=== PATIENT | male | born 1965 | race Caucasian/White ===

== ENCOUNTER 2017-03-08 19:06 | Emergency (ER) | payer MEDICAID ==
[2017-03-08] MEDS ORDERED: Albuterol/Ipratropium Neb 3 ML AERS HHN ONE ×2 (20:08→20:21)
--- NOTE | 2017-03-08 20:12 | ED Physician Chart ---
Chief Complaint/HPI - Patient Information Date Seen:: 03/08/17 Time Seen:: 20:08 Chief Complaint:: cough History of Present Illness:: pt here for cough x 2 days prod of yellow sputum ...and now his chest is very sore from cough. no def fever. pt has hx of copd. he has a inhaler and has been using it lately. no leg pains or edema. missed work lat 2 days...was in bed (although he is easily ambulating in ed and around hospital to find a cup of tea) Allergies:: Allergies Allergy/AdvReac Type Severity Reaction Status Date / Time No Known Allergies Allergy Verified 03/08/17 19:22 Vitals:: Vital Signs - 8 hr 03/08/17 19:23 Temp 99.0 F HR 70 RR 16 BP 117/68 O2 Sat % 94 Historian:: Patient Review of Systems - Review of Systems General/Constitutional: No fever, No chills, No weight loss, No weakness, No diaphoresis, No edema, No loss of appetite Skin: No skin lesions, No rash, No bruising Head: No headache, No light-headedness Eyes: No loss of vision, No pain, No diplopia ENT: No earache, No nasal drainage, No sore throat, No tinnitus Neck: No neck pain, No swelling, No thyromegaly, No stiffness, No mass noted Cardio Vascular: No chest pain, No palpitations, No PND, No orthopnea, No edema Pulmonary: No SOB, Cough, Sputum, Wheezing GI: No nausea, No vomiting, No diarrhea, No pain, No melena, No hematochezia, No constipation, No hematemesis G/U: No dysuria, No frequency, No hematuria Musculoskeletal: No bone or joint pain, No back pain, No muscle pain Endocrine: No polyuria, No polydipsia Psychiatric: No prior psych history, No depression, No anxiety, No suicidal ideation Hematopoietic: No bruising, No lymphadenopathy Allergic/Immuno: No urticaria, No angioedema Neurological: No syncope, No focal symptoms, No weakness, No paresthesia, No headache, No seizure, No dizziness, No confusion, No vertigo Past Medical History - Past Medical History Past Medical History: HTN, Asthma/COPD, Other ("liver dz" txd last yr) Social History: Smoker Medication: Reviewed Physical Exam - Physical Examination General/Constitutional: Awake, Well-developed, well-nourished, Alert, No distress, GCS 15, Non-toxic appearing, Ambulatory Head: Atraumatic Eyes: Lids, conjuctiva normal, PERRL, EOMI Skin: Nl inspection, No rash, No skin lesions, No ecchymosis, Well hydrated, No lymphadenopathy ENMT: External ears, nose nl, Nasal exam nl, Lips, teeth, gums nl Neck: Nontender, Full ROM w/o pain, No JVD, No nuchal rigidity, No bruit, No mass, No stridor Respiratory: Nl effort/Exclusion, Clear to Auscultation Other Respiratory comments:: pos diffuse wheeze Cardio Vascular: RRR, No murmur, gallop, rubs, NL S1 S2 GI: No tenderness/rebounding/guarding, No organomegaly, No hernia, Normal BS's, Nondistended, No mass/bruits, No McBurney tenderness : No CVA tenderness Extremities: No tenderness or effusion, Full ROM, normal strength in all extremities, No edema, Normal digits & nails Other Extremities comments:: hairless smooth skin legs w somewhat vericose veins. ok pulses. no homans . no edema. nontndr legs. Neuro/Psych: Alert/oriented, DTR's symmetric, Normal sensory exam, Normal motor strength, Judgement/insight normal, Mood normal, Normal gait, No focal deficits Misc: normal gait, Normal back, No paraspinal tenderness Labs/Radiology/EKG Results - Radiology Results Results: cxr nad , no infiltrate. interestingly pt has a elevated l hemidiaphragm as compared to l side (unclear why but hx of liver dz may be related)..dw pt who has no knowlegde of this and denies hx of penetrating trunk trauma. ED Septic Shock - . Is Septic Shock (SBP<90, OR Lactate>4 mmol\\L) present?: No - <6hrs of presentation: Vital Signs: Vital Signs - 8 hr 03/08/17 19:23 Temp 99.0 F HR 70 RR 16 BP 117/68 O2 Sat % 94 Reassessment (Disposition) - Reassessment Reassessment:: improved s/p neb tx. cxr dw pt. will rx z-pack. t #3 no 14 . work note. Reassessment Condition:: Improved - Diagnosis Diagnosis:: bronchitis mild copd exacerbation - Aftercare/Follow up Instructions Aftercare/Follow-Up Instructions:: Counseled pt regarding lab results/diagnosis & need follow up - Patient Disposition Discharge/Transfer:: Home Condition at Disposition:: Improved
--- NOTE | 2017-03-09 07:53 | Diagnostic Imaging Report ---
Portable chest x-ray HISTORY: Cough The overall heart size is difficult to assess with portable technique along with elevation the right hemidiaphragm. No focal pulmonary processes. No hilar or mediastinal abnormalities. IMPRESSION: 1. Elevation of the right hemidiaphragm 2. No acute focal pulmonary processes
== END 2017-03-08 21:30 | disposition home or self-care (01) ==
LOC: ER 19:06
DX: J44.1 Chronic obstructive pulmonary disease with (acute) exacerbation (principal); J40 Bronchitis, not specified as acute or chronic; J45.909 Unspecified asthma, uncomplicated; I10 Essential (primary) hypertension; F17.200 Nicotine dependence, unspecified, uncomplicated
CPT/HCPCS: 71010-TC; 94640; Z7502